=== PATIENT | female | born 1975 | race American Indian/Alaskan Native ===

== ENCOUNTER 2020-05-18 09:33 | Outpatient (CLI) | payer OTHER | END 2020-05-18 10:29 | disposition home or self-care (01) | LOC: NST 09:33 | PROVIDERS: ATTEND Obstetrics & Gynecology | DX: Z34.83 Encounter for supervision of other normal pregnancy, third trimester (principal) ==

== ENCOUNTER 2020-07-05 15:00 | Inpatient (IN) | payer OTHER ==
[~2020-07-05] VITALS: Ht 157.5 cm; Wt 3.6 kg
[2020-07-12] MEDS ORDERED: PRENATAL TABLE1 EAC1 PO (09:55)
== END 2020-07-16 13:08 | disposition home or self-care (01) | DRG 788 ==
LOC: OB/GYN 07-09 15:00 → O/R 07-12 08:50 → LDR 07-12 08:50 → O/R 07-13 13:53 → SURG-SUITE 07-13 15:37
PROVIDERS: ADMIT Obstetrics & Gynecology Maternal & Fetal Medicine; ATTEND Obstetrics & Gynecology Maternal & Fetal Medicine
PROC: 3E033VJ Introduction of Other Hormone into Peripheral Vein, Percutaneous Approach (ICD-10-PCS; 2020-07-12)
PROC: 4A1HXFZ Monitoring of Products of Conception, Cardiac Rhythm, External Approach (ICD-10-PCS; 2020-07-12)
PROC: 10D00Z1 Extraction of Products of Conception, Low, Open Approach (ICD-10-PCS; principal; 2020-07-13 15:00)
DX: O62.1 Secondary uterine inertia (principal); O48.0 Post-term pregnancy; Z3A.40 40 weeks gestation of pregnancy; Z37.0 Single live birth; Z20.822 Contact with and (suspected) exposure to COVID-19

== ENCOUNTER 2020-07-06 11:59 | Outpatient (CLI) | payer OTHER | END 2020-07-06 13:56 | disposition home or self-care (01) | LOC: NST 11:59 | PROVIDERS: ATTEND Obstetrics & Gynecology Maternal & Fetal Medicine | DX: Z34.83 Encounter for supervision of other normal pregnancy, third trimester (principal); Z34.82 Encounter for supervision of other normal pregnancy, second trimester ==

== ENCOUNTER 2020-10-25 08:58 | Outpatient (CLI) | payer OTHER ==
[~2020-10-25 08:58] MED LIST: PRENATAL TABLE1 EAC1 PO
== END 2020-10-25 09:17 | disposition home or self-care (01) ==
LOC: SONOGRAMA 08:58
PROVIDERS: ATTEND Specialist
DX: R10.84 Generalized abdominal pain (principal); K42.9 Umbilical hernia without obstruction or gangrene